=== PATIENT | female | born 1965 | race American Indian/Alaskan Native ===

== ENCOUNTER 2021-11-18 09:28 | Emergency (ER) | payer BC ==
--- NOTE | 2021-11-18 10:41 | Emergency Department Report ---
ED Chest Pain HPI - General Chief Complaint: Chest Pain Stated Complaint: CHEST PAIN PUI?: No Time Seen by Provider: 11/18/21 10:34 Source: patient Mode of arrival: Ambulatory Limitations: No Limitations - History of Present Illness Initial Comments: 56-year-old -[place] female with a past medical history of asthma, hyper tension and diabetes presents to the ER today with complaints of chest pain. Patient states that the pain woke her up out of sleep this morning. She states that the pain is in her left chest and radiates into the left shoulder, left upper back and down into the left arm. She described as a sharp pain that is constant but waxes and wanes. She states that the pain is worse when she is laying down and with movement, and also movement of her left shoulder. She is unable to tell what makes it better. She reports associated nausea and shortness of breath. She also reports mild increasing wheezing lately but she denies any cough, rhinorrhea, nasal congestion, fever or chills. She denies any lower extremity swelling or calf pain. Patient states that she has had a treadmill stress test about 3 years ago and it was normal. She denies tobacco use or alcohol abuse or illicit drug use. MD Complaint: chest pain -: This morning Severity scale (0 -10): 8 - Related Data Home Medications Medication Instructions Recorded Confirmed Last Taken traMADoL [Ultram 50 MG tab] 50 mg PO Q6HR PRN 03/21/13 02/29/16 05/28/14 Previous Rx's Medication Instructions Recorded Last Taken Type HYDROcodone/APAP 5-325 [[place] 1 - 2 each PO Q6HR PRN #14 tablet 02/29/16 Unknown Rx 5/325] Ibuprofen [Motrin 800 MG tab] 800 mg PO Q8HR PRN #20 tablet 02/29/16 Unknown Rx Ibuprofen [Motrin] 600 mg PO Q8H PRN #30 tablet 11/18/21 Unknown Rx methOCARBAMOL [Robaxin TAB] 750 mg PO Q8H PRN #30 tab 11/18/21 Unknown Rx Allergies Allergy/AdvReac Type Severity Reaction Status Date / Time No Known Allergies Allergy Verified 02/29/16 18:48 Heart Score - HEART Score History: Slightly suspicious EKG: Normal Age: 45-65 Risk factors: > 3 risk factors or hx of atherosclerotic disease (Hypertension, diabetes, obesity) Troponin: < normal limit HEART Score: 3 - EKG Read Time Time EKG Completed: 09:38 EKG Read Time: 09:56 - Critical Actions Critical Actions: 0-3 pts:0.9-1.7%risk of adverse cardiac event.Candidate for discharge ED Review of Systems ROS: Stated complaint: CHEST PAIN Other details as noted in HPI Comment: All other systems reviewed and negative Constitutional: denies: chills, fever Respiratory: shortness of breath, wheezing Cardiovascular: chest pain Gastrointestinal: nausea ED Past Medical Hx - Past Medical History Hx Hypertension: Yes Hx Diabetes: Yes Hx Arthritis: Yes Hx Asthma: Yes - Surgical History Hx Cholecystectomy: Yes Additional Surgical History: Hysterectomy. tubal ligation. hernia repair - Social History Smoking Status: Never Smoker Substance Use Type: None - Medications Home Medications: Home Medications Medication Instructions Recorded Confirmed Last Taken Type traMADoL [Ultram 50 MG tab] 50 mg PO Q6HR PRN 03/21/13 02/29/16 05/28/14 History HYDROcodone/APAP 5-325 [[place] 1 - 2 each PO Q6HR PRN #14 tablet 02/29/16 Unknown Rx 5/325] Ibuprofen [Motrin 800 MG tab] 800 mg PO Q8HR PRN #20 tablet 02/29/16 Unknown Rx Ibuprofen [Motrin] 600 mg PO Q8H PRN #30 tablet 11/18/21 Unknown Rx methOCARBAMOL [Robaxin TAB] 750 mg PO Q8H PRN #30 tab 11/18/21 Unknown Rx ED Physical Exam - General Limitations: No Limitations General appearance: alert, in no apparent distress - Neck Neck exam: Present: normal inspection, full ROM. Absent: meningismus - Respiratory Respiratory exam: Present: normal lung sounds bilaterally, wheezes (mild wheezing upper lung reynolds. ), chest wall tenderness (Left anterior upper chest but patient states this pain feels different). Absent: respiratory distress, rales, rhonchi, stridor - Cardiovascular Cardiovascular Exam: Present: regular rate, normal rhythm, normal heart sounds - GI/Abdominal GI/Abdominal exam: Present: soft. Absent: distended, tenderness, guarding, rebound - Extremities Exam Extremities exam: Present: normal capillary refill. Absent: pedal edema, calf tenderness - Expanded Upper Extremity Exam Left Shoulder Exam: Present: normal inspection, full ROM (but pain with rom and ROM causes pain to left chest), tenderness (Mild ). Absent: swelling, abrasion, laceration, ecchymosis, deformity, crepidus, dislocation, erythema, tenderness over AC joint - Neurological Exam Neurological exam: Present: alert, oriented X3, CN II-XII intact, normal gait - Psychiatric Psychiatric exam: Present: normal affect, normal mood - Skin Skin exam: Present: intact ED Course Vital Signs 11/18/21 11/18/21 09:34 11:16 Temperature 98.6 F Pulse Rate 83 Respiratory 18 18 Rate Blood Pressure 160/89 [Right] O2 Sat by Pulse 98 Oximetry OTIS score - Otis Score Age > 65: (0) No Aspirin use within the Past 7 Days: (0) No 3 or more CAD Risk Factors: (0) No 2 or more Angina events in past 24 hrs: (0) No Known CAD with more than 50% Stenosis: (0) No Elevated Cardiac Markers: (0) No ST Deviation Greater than 0.5mm: (0) No OTIS Score: 0 ED Medical Decision Making - Lab Data Result diagrams: 11/18/21 11:02 11/18/21 11:02 Laboratory Results - last 24 hr 11/18/21 11/18/21 11:02 11:02 WBC 6.7 RBC 4.69 Hgb 14.1 Hct 42.0 MCV 90 MCH 30 MCHC 34 RDW 13.3 Plt Count 266 Lymph % (Auto) 33.4 [place] % (Auto) 8.4 H Eos % (Auto) 4.6 H Baso % (Auto) 1.0 Lymph # (Auto) 2.2 Wilcox # (Auto) 0.6 Eos # (Auto) 0.3 Baso # (Auto) 0.1 Seg Neutrophils % 52.6 Seg Neutrophils # 3.5 Sodium 141 Potassium 4.5 Chloride 102.8 Carbon Dioxide 29 Anion Gap 14 BUN 10 Creatinine 0.7 Estimated GFR > 60 BUN/Creatinine Ratio 14 Glucose 101 H Calcium 9.2 Total Bilirubin 0.50 AST 33 ALT 46 Alkaline Phosphatase 83 Troponin T < 0.010 Total Protein 7.0 Albumin 4.0 Albumin/Globulin Ratio 1.3 - EKG Data EKG shows normal: sinus rhythm Rate: normal (79) - EKG Data Interpretation: normal EKG - Radiology Data Radiology results: report reviewed [facility] [address] [place] [address] XRay Report Signed Patient: MYA HICKS MR#: [id number] : 1965 Acct:[id number] Age/Sex: 56 / F ADM Date: 11/18/21 Loc: ED Attending Dr: Ordering Physician: ISABELLA FIELDS Date of Service: 11/18/21 Procedure(s): XR chest 1V ap Accession Number(s): [id number] cc: ISABELLA FIELDS Fluoro Time In Minutes: CHEST 1 VIEW 11/18/2021 10:34 AM INDICATION / CLINICAL INFORMATION: Chest Pain. COMPARISON: 02/29/2016 FINDINGS: SUPPORT DEVICES: None. HEART / MEDIASTINUM: No significant abnormality. LUNGS / PLEURA: No significant pulmonary or pleural abnormality. No pneumothorax. ADDITIONAL FINDINGS: No significant additional findings. IMPRESSION: 1. No acute findings. Signer Name: Lamonte Chavira Jr, MD Signed: 11/18/2021 11:38 AM Workstation Name: [id number] Transcribed By: TTR Dictated By: LAMONTE CHAVIRA JR, MD Electronically Authenticated By: LAMONTE CHAVIRA JR, MD Signed Date/Time: 11/18/21 113 DD/ 1138 TD/TT: - Medical Decision Making 1407: Labs reviewed and show acute abnormality. Trop x 2 negative. Heart score 3; wells score for PE is 0; Her VS are stable. Patient is currently laying in bed comfortably. She is no in any significant pain or respiratory distress. She is not ill appearing or toxic. Suspect musculoskeletal chest wall pain because it hurts when she moves her body, left arm and it is ttp. Mild case of asthma flare could also be contributing to her pain. I do not suspected unstable angina, PE, dissection or any other emergent cardiopulmonary conditions requiring further testing or admission at this time. Discussed all results with patient, suspected dx and tx plan with patient. She state she take low dose prednisone daily for her asthma and so I recommend just takin 2 per day for 5 day but to monitor her BS while taking and increase her neb tx from once per day to 3-4 times per day. Rx for muscle relaxer and ibuprofen also prescribed. Recommend close follow up with PCP but she und erstands to return to ED if worse. Critical care attestation.: If time is entered above; I have spent that time in minutes in the direct care of this critically ill patient, excluding procedure time. ED Disposition Clinical Impression: Chest wall pain, Nonspecific chest pain, Asthma Disposition: HOME / SELF CARE / HOMELESS Is pt being admited?: No Does the pt Need Aspirin: No Condition: Stable Instructions: Chest Wall Pain, [id number], Nonspecific Chest Pain, Adult, Asthma, Adult, [id number], Asthma (ED) Additional Instructions: I recommend that she use her nebulizer treatment instead of once a day every 4-6 hours as needed. You can increase the prednisone to twice a day for the next 5 days but continue to monitor your sugar while taking the prednisone. You can take the ibuprofen and the muscle relaxer to help with the pain. I do recommend close follow-up with your primary care doctor. If your symptoms changes or worsens in any way return to the ER. Prescriptions: Ibuprofen [Motrin] 600 mg PO Q8H PRN #30 tablet PRN Reason: Pain methOCARBAMOL [Robaxin TAB] 750 mg PO Q8H PRN #30 tab PRN Reason: pain Referrals: TIM CHAMORRO MD [Primary Care Provider] - 3-5 Days Time of Disposition: 14:03
[2021-11-18] MEDS ORDERED: SODIUM CHLORIDE 0.9% 500 ML 500 ML IV ONE (10:53)
[2021-11-18] MEDS ORDERED: ASPIRIN 325 MG TAB PO ONE (10:53)
[2021-11-18] MEDS ORDERED: MORPHINE 4 MG/1 ML INJ IV ONE (10:54)
[2021-11-18] MEDS ORDERED: IPRATROPIUM/ALBUTEROL SULFATE 3 ML AMPUL.NEB IH ONE (10:54)
[2021-11-18] MEDS ORDERED: ONDANSETRON 4 MG/2 ML INJ IV ONE (10:54)
[2021-11-18 11:28] LABS: Basophils # (Auto) 0.1 K/mm3 (0.0-0.1); Eosinophils # (Auto) 0.3 K/mm3 (0.0-0.4); Eosinophils % (Auto) 4.6 % (0.0-4.3); Hemoglobin 14.1 gm/dl (10.1-14.3); Lymphocytes # (Auto) 2.2 K/mm3 (1.2-5.4); Lymphocytes % (Auto) 33.4 % (13.4-35.0); Mean Corpuscular HGB Conc 34 % (30-34); Mean Corpuscular Volume 90 fl (79-97); Monocytes # (Auto) 0.6 K/mm3 (0.0-0.8); Monocytes % (Auto) 8.4 % (0.0-7.3); Platelet Count 266 K/mm3 (140-440); Red Blood Count 4.69 M/mm3 (3.65-5.03); Red Cell Distribution Width 13.3 % (13.2-15.2)
--- NOTE | 2021-11-18 11:43 | XRay Report ---
CHEST 1 VIEW 11/18/2021 10:34 AM INDICATION / CLINICAL INFORMATION: Chest Pain. COMPARISON: 02/29/2016 FINDINGS: SUPPORT DEVICES: None. HEART / MEDIASTINUM: No significant abnormality. LUNGS / PLEURA: No significant pulmonary or pleural abnormality. No pneumothorax. ADDITIONAL FINDINGS: No significant additional findings. IMPRESSION: 1. No acute findings. Signer Name: Lamonte Chavira Jr, MD Signed: 11/18/2021 11:38 AM Workstation Name: [id number]
[2021-11-18 11:59] LABS: Blood Urea Nitrogen 10 mg/dL (7-17); Calcium 9.2 mg/dL (8.4-10.2)
[2021-11-18 12:00] LABS: Alanine Aminotransferase 46 units/L (7-56); Hemolysis Index 180
[2021-11-18 12:01] LABS: BUN/Creatinine Ratio 14
[2021-11-18 14:22] VITALS: BP 118/76
--- NOTE | 2021-11-21 09:48 | Electrocardiograph Report ---
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
== END 2021-11-18 14:22 | disposition home or self-care (01) ==
LOC: ED 09:28
DX: R07.89 Other chest pain (principal); J45.909 Unspecified asthma, uncomplicated; I10 Essential (primary) hypertension; E11.9 Type 2 diabetes mellitus without complications; M19.90 Unspecified osteoarthritis, unspecified site; Z90.710 Acquired absence of both cervix and uterus; Z98.890 Other specified postprocedural states
CPT/HCPCS: 36415; 71045; 80053; 84484; 85025; 93005; 94640; 96374; 96375; 99284; J2270; J2405; J7040